=== PATIENT | female | born 1965 | race African-American/Black ===

== ENCOUNTER 2016-12-21 13:39 | Emergency (ER) | payer MEDICAID ==
[~2016-12-21] VITALS: Ht 165.1 cm; Wt 80.0 kg
[2016-12-21 13:59] VITALS: BP 132/80
== END 2016-12-21 19:00 | disposition left against medical advice (07) ==
LOC: ER 18:43
DX: Z04.3 Encounter for examination and observation following other accident (principal); M54.2 Cervicalgia; M54.9 Dorsalgia, unspecified; Z53.21 Procedure and treatment not carried out due to patient leaving prior to being seen by health care provider